=== PATIENT | male | born 1935 | race Caucasian/White ===

== ENCOUNTER → 2016-12-29 | Outpatient (CLI) | payer MEDICARE, BC ==
[~2016-12-29] VITALS: Ht 188 cm; Wt 83.3 kg
[~2016-12-29] MED LIST: NO MEDICATIONS; VITAMIN C500 M1 PO; VITAMIN D1000 UNI1 PO
--- NOTE | ~2016-12-29 | XA80 ---
[facility] A Service of [facility] RADIOLOGY TEXT RESULTS PATIENT: CARLOS JACKSON LOCATION: CIVR : 34 UNIT #: [id number] AGE: [address]: Maegan Landin MD SEX: M ORDER DR: [id number] [facility] [address] [place], [place] [address] [id number] O MR#: [id number] Acc #: [id number] NAME: CARLOS JACKSON : 1935 SEX: M STUDY DATE/TIME: 12/29/2016 8:11 UNIT: CIVR ROOM: STUDY DESCRIPTION: XA CVC Remove Tunneled Cath W Attending Physician: Maegan Landin M.D., Ph.D. Ordering Physician: Maegan Landin M.D., Ph.D. Primary Care Physician: Vika De La Cruz M.D. MEDICAL IMAGING REPORT This report is preliminary unless electronic signature is present EXAM MediPort removal HISTORY This patient had history of non-Hodgkins lymphoma and he completed his therapy in May of 2015. FINDINGS The procedure was explained to the patient including risks, benefits potential complications potential for alternative forms of treatment. Informed consent was obtained and prior to initiating procedure a formal time-out procedure was performed. Using all elements of maximal sterile barrier technique including hand hygiene caps sterile gowns and gloves and masks the preexisting port site was prepped with 2% Chlorhexidine percutaneous antisepsis and covered with large sterile sheet. The initial service tester image was obtained which showed preexisting right internal jugular vein MediPort skin and subcutaneous tissues were anesthetized with buffered lidocaine and lidocaine with epinephrine small skin incision was made over the original incision and the port was removed using a combination of blunt and sharp dissection port was removed in its entirety. Its removal was confirmed with a radiographic image, the port pocket was flushed. Deep layer of the port pocket was closed using interrupted 3-0 Vicryl sutures and a running 4-0 Monocryl suture was used close the skin. Dermabond was applied to the wound. Patient did receive moderate sedation consisting of 2.5 mg of Versed and 50 mcg of fentanyl. I supervised the IVR nurse and monitored the patient's vital signs for a total of 15 minutes of face to face time. Total fluoroscopy time was 0.1 minutes AK was 1 mGy. IMPRESSION Successful removal of this patient's right internal jugular vein MediPort [facility] A Service of [facility] RADIOLOGY TEXT RESULTS PATIENT: CARLOS JACKSON LOCATION: [facility] : 34 UNIT #: [id number] AGE: [address]: Maegan Landin MD SEX: M ORDER DR: in its entirety. Fluoroscopy was used during the procedure and permanent images were saved. Dictated by... Lian Edmondson M.D. THIS IS AN ELECTRONICALLY VERIFIED REPORT Lian Edmondson M.D. at 12/31/2016 4:53 PM AFF/jay TD: 12/30/2016 13:06 JOB #: [id number] MEDICAL IMAGING REPORT Page 1 of 1 COPY
[2016-12-29 07:34] LABS: HEMATOCRIT 40.2 % (38.0-50.0); HEMOGLOBIN 13.2 gm/dL (13.0-16.0); MEAN CELL VOLUME 87.9 FL (83-96); MEAN CORPUSCULAR HEMOGLOBIN 28.9 PG (28-34); MEAN CORPUSCULAR HGB CONC 32.9 g/dL (30-36); MEAN PLATELET VOLUME 8.7 FL (6.5-11.5); RED BLOOD COUNT 4.57 X10e (3.90-5.60); RED CELL DISTRIBUTION WIDTH 14.6 % (11.0-15.5); WHITE BLOOD COUNT 6.1 X10e3 (4.0-10.5)
[2016-12-29 07:47] LABS: PARTIAL THROMBOPLASTIN TIME 26.2 SECONDS (23.5-31.3); PROTHROMBIN TIME (PATIENT) 10.7 SECONDS (10.0-11.7)
== END | disposition home or self-care (01) ==
LOC: CIVR 07:05
PROVIDERS: Internal Medicine Hematology & Oncology
DX: Z45.2 Encounter for adjustment and management of vascular access device (principal); C85.89 Other specified types of non-Hodgkin lymphoma, extranodal and solid organ sites; M81.0 Age-related osteoporosis without current pathological fracture
CPT/HCPCS: 36415; 77001; 85027; 85610; 85730; J2250; J3010